=== PATIENT | female | born 1990 | race Caucasian/White ===

== ENCOUNTER 2018-09-06 05:05 | Inpatient (IN) | payer OTHER ==
[~2018-09-06 05:05] MED LIST: ELECTROLYTE-148 SOLN 1,000 ML IV SCH
[2018-09-06 06:49] VITALS: BMI 41.2
[2018-09-06] MEDS ORDERED: BUTORPHANOL TARTRATE 1 MG/ML VIAL IVPB ONE (07:00)
[2018-09-06] MEDS ORDERED: ELECTROLYTE-148 SOLN 1,000 ML IV ONE (07:08)
[2018-09-06] MEDS ORDERED: BUTORPHANOL TARTRATE 2 MG/ML VIAL ONE (07:09)
[2018-09-06 07:27] LABS: EOS % 12.5 % (0-4.5); HEMATOCRIT 34.8 % (32.4-45.2); HEMOGLOBIN 11.5 GM/dL (10.7-15.3); LYMPH % 33.4 % (8-40); MCH 26.5 pg (25.7-33.7); MEAN CELL VOLUME 80.3 fl (80-96); MEAN PLT VOLUME 9.8 fl (7.5-11.1); MONO % 20.8 % (3.8-10.2); NEUT % 33.3 % (42.8-82.8); PLATELET COUNT 225 K/MM3 (134-434); RBC 4.33 M/mm3 (3.60-5.2); RDW 14.4 % (11.6-15.6)
[2018-09-06 07:32] LABS: INR 0.87 (0.83-1.09); PROTHROMBIN TIME (PATIENT) 10.2 SEC (9.7-13.0)
[2018-09-06 07:35] LABS: ACTIVATED PTT 30.8 SECONDS (25.2-36.5)
[2018-09-06 07:38] LABS: ANION GAP 9 MMOL/L (8-16); BLOOD UREA NITROGEN 8 mg/dL (7-18); CALCIUM 8.4 mg/dL (8.5-10.1); CHLORIDE 108 mmol/L (98-107); CO2 19 mmol/L (21-32); CREATININE 0.4 mg/dL (0.55-1.3); GLUCOSE,RANDOM 87 mg/dL (74-106); POTASSIUM 4.1 mmol/L (3.5-5.1); SODIUM 136 mmol/L (136-145)
--- NOTE | 2018-09-06 09:22 | HP ---
Past Medical History - Admission Chief Complaint: Uterine contractions History of Present Illness: 28yo @ 39.1wks with LEXUS 09/12/18 here with uterine contractions. No VB/LOF. +FM Seen in triage yesterday for suspected ROM, intact, 1-2cm; discharged home. 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: Alzheimer's, CVA, Dementia, Migraine, Multiple Sclerosis, Peripheral Neuropathy, Parkinson's, Seizure, Syncope, TIA, Vertigo, Other Cardiovascular: No: AFIB, Aneurysm, Aortic Insufficiency, Aortic Stenosis, CAD, CHF, Deep Vein Thrombosis, HTN, Hyperlipdemia, DC, Mitral Insufficiency, Mitral Stenosis, Murmur, Pulmonary Hypertension, Other Pulmonary: No: Asthma, Bronchitis, Cancer, COPD, O2 Dependent, Pneumonia, Previously Intubated, Pulmonary Embolus, Pulmonary Fibrosis, Sleep Apnea, Other Gastrointestinal: No: Ascites, Cancer, Constipation, Crohn's Disease, Diverticulitis, Diverticulosis, Esophageal Varices, Gastritis, GERD, GI Bleed, Hemorrhoids, Hiatal Hernia, Inflamatory Bowel Disease, Irritable Bowel Disease, Pancreatitis, Peptic Ulcer Disease, Ulcerative Colitis, Other Hepatobiliary: No: Cirrhosis, Cholelithiasis, Cholecystitis, Choledocholithiasis , Hepatitis A, Hepatitis B, Hepatitis C, Other Renal/: Yes: Neurogenic Bladder Reproductive: No: Ectopic , Endometriosis, Fibroids, PID, Polycystic Ovary Syndrome, Postmenopausal, Other ...: 3 ...Para: 2 ...Term: 2 ...: 0 ...Spon : 0 ...Induced : 0 ...Multiple Gestation: 0 ...LMP: 12/06/17 ... Weeks Gestation by Dates: 39.1 ...EDC by Dates: 09/12/18 ...EDC by Sono: 09/16/18 Heme/Onc: No: Anemia, B12 Deficiency, Bleeding Disorder, Cancer, Current Chemotherapy, Current Radiation Therapy, Hemochromatosis, Hypercoaguable State, Myeloproliferative Synd, Sickle Cell Disease, Sickle Cell Trait, Thrombocytopenia, Other - Past Surgical History Past Surgical History: Yes: None Hx Myomectomy: No Hx Transabdominal Cerclage: No - Smoking History Have you smoked in the past 12 months: No - Alcohol/Substance Use Hx Alcohol Use: No - Social History Usual Living Arrangement: Yes: Alone History of Recent Travel: No Home Medications - Allergies Allergies/Adverse Reactions: Allergies Allergy/AdvReac Type Severity Reaction Status Date / Time Penicillins Allergy Verified 09/05/18 09:10 - Home Medications Home Medications: Ambulatory Orders Prenat 115/Iron Fum/Folic/Dss [ 19 Tablet] 1 each PO DAILY 09/05/18 Physical Exam - Maternity Vital Signs: Vital Signs Temperature 98.6 F 09/06/18 08:00 Pulse Rate 77 09/06/18 08:00 Respiratory Rate 20 09/06/18 08:00 Blood Pressure 120/71 09/06/18 08:00 O2 Sat by Pulse Oximetry (%) Constitutional: Yes: Well Nourished, No Distress, Calm Eyes: Yes: WNL, Conjunctiva Clear, EOM Intact HENT: Yes: WNL, Atraumatic, Normocephalic Neck: Yes: WNL, Supple, Trachea Midline Cardiovascular: Yes: WNL, Regular Rate and Rhythm Breast(s): Yes: WNL - Abdominal Exam/OB Number of Fetuses: Single Presentation: Vertex Contractions: Yes Regularity: Regular Intensity: Mod/Strong Monitor Mode: External Heart Rate Location: [facility] Category: I Accelerations: Non-Uniform - Vaginal Exam/OB Vaginal Bleediing: No Speculum Exam: No Dilatation (cm): 4 Effacement (%): 100 Amniotic Membrane Status: Intact Presentation: Vertex/Position Station: -3 - Physical Exam Edema: No - Labs Lab Results: CBC, BMP 09/06/18 06:00 09/06/18 06:00 Problem List - Problems (1) Uterine contractions Code(s): [id number] - Assessment/Plan 28yo @ 39.1wks here in labor Admit to L&D NPO, IVFs Cat I tracing AROM/pitocin Anticipate TAL Mitchell MD
[2018-09-06] MEDS ORDERED: OXYTOCIN 20 UNITS in 0.9% NS 20 UNIT/1,000 ML INFUS.BAG IV ONE (09:49)
--- NOTE | 2018-09-06 09:51 | PN ---
Progress Note, Labor Vaginal Exam #1 Labor Exam Date: 09/06/18 Heart Rate (range): Cat I Dilatation: 7 Effacement (%): 100 Amniotic Membrane Status: Ruptured Presentation: Vertex/Position Station: -1 Remarks: richa PFEIFFER MD
--- NOTE | 2018-09-06 10:27 | PN ---
Progress Note, Labor Vaginal Exam #2 Labor Exam Date: 09/06/18 Labor Exam Time: 10:27 Heart Rate (range): Cat I Dilatation: 10 Effacement (%): 100 Amniotic Membrane Status: Ruptured Presentation: Vertex/Position Station: 0 Remarks: Strong urge to push Will start Anticipate TAL Mitchell MD
[2018-09-06] MEDS: OXYTOCIN 20 UNITS in 0.9% NS 20 UNIT/1,000 ML INFUS.BAG IV SCH ×2 (10:45→14:00)
[2018-09-06] MEDS ORDERED: BENZOCAINE 20% 57 GM BOTTLE TP PRN (10:48)
[2018-09-06] MEDS ORDERED: METHYLERGONOVINE MALEATE 0.2 MG/1 ML AMP IM PRN (10:48)
[2018-09-06] MEDS ORDERED: BENZOCAINE 28 GM HEMORRHOIDAL OINTMENT TP PRN (10:48)
[2018-09-06] MEDS ORDERED: BISACODYL 10 MG SUPP.RECT RC PRN (10:48)
[2018-09-06] MEDS ORDERED: WITCH HAZEL 50% (TUCKS) 40 PAD/JAR PAD TP PRN (10:48)
--- NOTE | 2018-09-06 10:48 | PN ---
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 Spontaneous delivery of the shoulders. No nuchal or meconium. placed on maternal abdomen. Cord clamped and cut. Weight pending. Apgars 9/9. Spontaneous delivery of intact placenta with 3VC. Fundus firm. Perineum inspected, no lacerations. EBL 250ml. Mother and baby, August, doing well. Adriana Mitchell MD
[2018-09-06] MEDS: IBUPROFEN 600 MG TABLET (FP) PO PRN ×2 (14:38→21:40)
[2018-09-06] MEDS: ACETAMINOPHEN 325 MG TABLET (FP) PO PRN ×2 (14:38→21:41)
[2018-09-07 07:08] LABS: BASO % 0.4 % (0-2.0); EOS % 1.6 % (0-4.5); HEMATOCRIT 30.3 % (32.4-45.2); HEMOGLOBIN 10.1 GM/dL (10.7-15.3); LYMPH % 27.7 % (8-40); MCH 26.6 pg (25.7-33.7); MCHC 33.2 g/dl (32.0-36.0); MEAN CELL VOLUME 80.2 fl (80-96); MEAN PLT VOLUME 9.5 fl (7.5-11.1); MONO % 6.7 % (3.8-10.2); NEUT % 63.6 % (42.8-82.8); PLATELET COUNT 201 K/MM3 (134-434); RBC 3.78 M/mm3 (3.60-5.2); RDW 14.9 % (11.6-15.6); WHITE BLOOD COUNT 9.3 K/mm3 (4.0-10.0)
--- NOTE | 2018-09-07 08:15 | PN ---
Post Progress Note - Subjective Subjective: Doing well. Lochia c/w menses. No fevers/chills. Post Day: 1 Type of Delivery: Vital Signs: Vital Signs Temperature 97.9 F 09/07/18 06:35 Pulse Rate 79 09/07/18 06:35 Respiratory Rate 20 09/07/18 06:35 Blood Pressure 123/60 09/07/18 06:35 O2 Sat by Pulse Oximetry (%) 100 09/06/18 11:35 Breast Exam: No: Soft, Engorged, Cracked Nipples, Other Uterus: No: Fundus Firm, Fundus above umbilicus, Fundus @ umbilicus, Fundus below umbilicus, Non-tender, Other Abdomen/GI: Yes: Abdomen soft Lochia: Yes: Rubra Lochia, amount: Small Extremities: Yes: Calves non-tender Perineum: Yes: Intact Activity: Ambulating - Labs Labs: CBC WBC 9.3 K/mm3 (4.0-10.0) 09/07/18 05:10 RBC 3.78 M/mm3 (3.60-5.2) 09/07/18 05:10 Hgb 10.1 GM/dL (10.7-15.3) L 09/07/18 05:10 Hct 30.3 % (32.4-45.2) L 09/07/18 05:10 MCV 80.2 fl (80-96) 09/07/18 05:10 MCH 26.6 pg (25.7-33.7) 09/07/18 05:10 MCHC 33.2 g/dl (32.0-36.0) 09/07/18 05:10 RDW 14.9 % (11.6-15.6) 09/07/18 05:10 Plt Count 201 K/MM3 (134-434) 09/07/18 05:10 MPV 9.5 fl (7.5-11.1) 09/07/18 05:10 Absolute Neuts (auto) 5.9 K/mm3 (1.5-8.0) 09/07/18 05:10 Total Counted 100 09/06/18 06:00 Neutrophils % 63.6 % (42.8-82.8) D 09/07/18 05:10 Neutrophils % (Manual) 64.0 % (42.8-82.8) 09/06/18 06:00 Lymphocytes % 27.7 % (8-40) 09/07/18 05:10 Lymphocytes % (Manual) 30.0 % (8-40) 09/06/18 06:00 Monocytes % 6.7 % (3.8-10.2) 09/07/18 05:10 Monocytes % (Manual) 4 % (3.8-10.2) 09/06/18 06:00 Eosinophils % 1.6 % (0-4.5) D 09/07/18 05:10 Eosinophils % (Manual) 2.0 % (0-4.5) 09/06/18 06:00 Basophils % 0.4 % (0-2.0) D 09/07/18 05:10 Nucleated RBC % 0 % (0-0) 09/07/18 05:10 Problem List - Problems (1) Uterine contractions Code(s): [id number] - Assessment/Plan 28yo s/p , PPD#1 Routine PP care OOB, ambulate Labs reviewed Anticipate d/c to home by PPD#2 Haylie Mitchell MD
[2018-09-07] MEDS: IBUPROFEN 600 MG TABLET (FP) PO PRN ×2 (10:21→21:15)
[2018-09-07] MEDS: ACETAMINOPHEN 325 MG TABLET (FP) PO PRN ×2 (10:21→21:15)
[2018-09-07] MEDS: PRENATAL VITAMINS W/ FOLIC ACID TABLET (FP) PO SCH (10:21)
[2018-09-07] MEDS ORDERED: SENNOSIDES/DOCUSATE COMBO (SENNA PLUS) TABLET (UD) PO PRN (22:00)
--- NOTE | 2018-09-08 07:46 | DS ---
Physical Exam-[employer]ER Vital Signs: Vital Signs Temperature 97.5 F L 09/07/18 22:34 Pulse Rate 83 09/07/18 22:34 Respiratory Rate 20 09/07/18 22:34 Blood Pressure 109/62 09/07/18 22:34 O2 Sat by Pulse Oximetry (%) 100 09/06/18 11:35 Constitutional: Yes: Well Nourished Eyes: Yes: Conjunctiva Clear HENT: Yes: Atraumatic Neck: Yes: Supple Cardiovascular: Yes: Regular Rate and Rhythm Respiratory: Yes: Regular Gastrointestinal: Yes: Normal Bowel Sounds ...Rectal Exam: Yes: WNL Renal/: Yes: WNL Pelvis: Yes: WNL External Genitalia: Yes: Normal Vaginal Exam: Yes: Normal Cervix: Yes: Normal Uterus: Yes: Firm ....Post : Yes: Uterus firm Breast(s): Yes: WNL Musculoskeletal: Yes: WNL Extremities: Yes: WNL Neurological: Yes: Alert, Oriented ...Motor Strength: WNL Psychiatric: Yes: Alert, Oriented Labs: CBC, BMP 09/07/18 05:10 09/06/18 06:00 Delivery - Delivery Vaginal Delivery: Spontaneous Type of Anesthesia: None Episiotomy/Laceration: None EBL (cc): 250 Delivery, Single - Stages of Labor Date 1st Stage Initiatied: 09/06/18 Time 1st Stage Initiated: 12:30 Date 2nd Stage Initiated: 09/06/18 Time 2nd Stage Initiated: 10:27 Date of Delivery: 09/06/18 Time of Delivery: 10:41 Time Placenta Delivered: 10:44 Placenta: Yes: Spontaneous - 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 Gender: Female Weight: 7 lb 15 oz Position: OA Total Hours ROM (Hrs/Mins): 59m - 1 Minute Total Score: 9 5 Minutes Total Score: 9 - [place] Feeding Plan Initial Plan: Elected not to breastfeed exclusively throughout hospitalization Discharge Summary Reason For Visit: ADMIT LABOR Current Active Problems Uterine contractions (Acute) Procedures: Principal: Normal spontaneous vaginal delivery Hospital Course: Routine care Condition: Good - Instructions Diet, Activity, Other Instructions: Regular diet No douching, no sexual intercourse x 6 weeks F/U in clinic in 6 weeks Disposition: HOME - Home Medications Comprehensive Discharge Medication List: Ambulatory Orders Prenat 115/Iron Fum/Folic/Dss [ 19 Tablet] 1 each PO DAILY 09/05/18
[2018-09-08 08:08] VITALS: BP 128/74; PULSE 70; TEMP 98.4
[2018-09-08] MEDS: PRENATAL VITAMINS W/ FOLIC ACID TABLET (FP) PO SCH ×2 (09:53)
[2018-09-08] MEDS: IBUPROFEN 600 MG TABLET (FP) PO PRN (09:53)
[2018-09-08] MEDS: ACETAMINOPHEN 325 MG TABLET (FP) PO PRN (09:54)
== END 2018-09-08 13:10 | disposition home or self-care (01) | DRG 560 ==
LOC: JLDR 05:05 → J3W 12:37
PROVIDERS: ADMIT Obstetrics & Gynecology; ATTEND Obstetrics & Gynecology
PROC: 10E0XZZ Delivery of Products of Conception, External Approach (ICD-10-PCS; principal; 2018-09-06)
DX: O80 Encounter for full-term uncomplicated delivery (principal); Z3A.39 39 weeks gestation of pregnancy; Z37.0 Single live birth
CPT/HCPCS: 36415; 59025; 59409; 80048; 85025; 85610; 85730; 86593; 86850; 86900; 86901